=== PATIENT | female | born 1990 | race African-American/Black ===

== ENCOUNTER 2018-03-12 04:58 | Inpatient (IN) ==
[2018-03-12] MEDS ORDERED: ONDANSETRON 4 MG/2 ML VIAL IV PRN ×2 (05:14→13:15)
[2018-03-12] MEDS ORDERED: ACETAMINOPHEN 325 MG TABLET PO PRN ×2 (05:14→13:15)
[2018-03-12] MEDS ORDERED: MEPERIDINE 50 MG/1 ML VIAL IV PRN (05:14)
[2018-03-12] MEDS ORDERED: BUTORPHANOL 2 MG/ML VIAL IV PRN (05:14)
[2018-03-12] MEDS ORDERED: CITRIC ACID/SODIUM CITRATE 30 ML UDCUP PO ONE (05:16)
[2018-03-12] MEDS ORDERED: FAMOTIDINE 20 MG/2 ML VIAL IV ONE (05:16)
[2018-03-12] MEDS ORDERED: fentaNYL 2 MCG/ROPIV 0.2% EPID 100 ML EPIDURAL SCH (05:30)
[2018-03-12 05:34] LABS: Basophils # 0.1 10*3/uL (0.0-0.2); Basophils % 0.4 % (0.0-0.8); Eosinophils % 0.3 % (0.00-10.9); Hemoglobin 12.5 GM/DL (12.0-16.0); Immature Granulocytes % 1.7 %; Lymphocytes # 1.9 10*3/uL (1.4-4.0); Lymphocytes % 16.5 % (21.3-54.2); Mean Corpuscular HGB Conc 32.1 GM/DL (32-36); Mean Corpuscular Hemoglobin 31 PG (27-34); Mean Corpuscular Volume 96.5 FL (87-102); Mean Platelet Volume 10.8 FL (9.6-12.0); Monocytes # 1.1 10*3/uL (0.11-0.8); Monocytes % 9.7 % (1.7-12.7); Neutrophils # 8.4 10*3/uL (1.4-7.4); Neutrophils % 71.4 % (38.7-73.9); Platelet Count 174 T/CUMM (130-400); Red Blood Count 4.04 MC/CUMM (3.8-5.5); Red Cell Distribution Width 14.8 % (9.3-17.3); White Blood Count 11.7 T/CUMM (4-12)
[2018-03-12 05:40] LABS: Apearance,Urine CLEAR (Clear); Bilirubin,Urine Negative (Negative); Blood, Urine Small mg/dL (Negative); Glucose,Urine (UA) Negative (Negative); Ketones,Urine Negative (Negative); Mucus,Urine Occasional /LPF (Occasional); Nitrite,Urine Negative (Negative); Protein,Urine Negative; RBC,Urine 4 /HPF (0-4); Squamous Epithelial Cell,Urine Occasional /HPF (0-10); Urine Color Yellow (Yellow); Urine Specific Gravity 1.017 (1.001-1.035); Urine Urobilinogen < 2.0 EU/DL (0.2-1.0); WBC,Urine 5 /HPF (0-6)
[2018-03-12] MEDS: LACTATED RINGERS 1,000 ML IV SCH ×3 (05:40→07:43)
[2018-03-12 06:04] LABS: Albumin 2.5 G/DL (3.4-5.0); Bilirubin,Total 0.5 MG/DL (0.2-1.0); Calcium 8.6 MG/DL (8.5-10.1); Osmolality,Calculated 275.5 MOS/KG (273-304); Potassium 3.6 MMOL/L (3.5-5.1); Total Protein 6.8 G/DL (6.4-8.3)
[2018-03-12] MEDS ORDERED: OXYTOCIN/LR 20 UNIT/1,000 ML BAG IV SCH (08:00)
[2018-03-12] MEDS ORDERED: HYDROCORTISONE 2.5% RECTAL CREAM 30 GM TUBE TOP PRN (13:15)
[2018-03-12] MEDS ORDERED: LANOLIN 50% CREAM 0.3 OZ TUBE TOP PRN (13:15)
[2018-03-12] MEDS ORDERED: BENZOCAINE 20%/MENTHOL 0.5% SPRAY 56 GM CAN TOP PRN (13:15)
[2018-03-12] MEDS ORDERED: RHO(D) IMMUNE GLOBULIN 300 MCG SYRINGE IM ONE (13:15)
[2018-03-12] MEDS ORDERED: oxyCODONE/ACETAMINOPHEN 5-325 MG TABLET PO PRN (13:15)
[2018-03-12] MEDS ORDERED: MEASLES/MUMPS/RUBELLA VACCINE 0.5 ML VIAL SUBCUT ONE (13:15)
[2018-03-12] MEDS ORDERED: OXYTOCIN/LR 20 UNIT/1,000 ML BAG IV ONE (13:15)
[2018-03-12] MEDS ORDERED: WITCH HAZEL PADS 100/JAR TOP PRN (13:15)
[2018-03-12] MEDS ORDERED: BISACODYL 10 MG SUPP RECTAL PRN (13:15)
[2018-03-12] MEDS ORDERED: DIPH/TET/ACEL PERT BOOSTER VACCINE 0.5 ML VIAL IM ONE (13:15)
[2018-03-12] MEDS: oxyCODONE/ACETAMINOPHEN 5-325 MG TABLET PO PRN (16:17)
[2018-03-12] MEDS: IBUPROFEN 800 MG TABLET PO PRN (22:29)
[2018-03-12] MEDS: FERROUS SULFATE 325 MG TABLET PO SCH (22:30)
[2018-03-12] MEDS: DOCUSATE SODIUM 100 MG CAPSULE PO SCH (22:30)
[2018-03-13] MEDS: IBUPROFEN 800 MG TABLET PO PRN ×2 (05:55→17:58)
[2018-03-13 06:01] LABS: Basophils % 0.2 % (0.0-0.8); Eosinophils # 0.1 10*3/uL (0.0-0.87); Eosinophils % 0.3 % (0.00-10.9); Hematocrit 34.4 VOL% (35.7-47.0); Hemoglobin 11.1 GM/DL (12.0-16.0); Immature Granulocytes % 1.9 %; Immature Granulocytes Absolute 0.33 #; Lymphocytes # 2.4 10*3/uL (1.4-4.0); Lymphocytes % 13.4 % (21.3-54.2); Mean Corpuscular HGB Conc 32.3 GM/DL (32-36); Mean Corpuscular Hemoglobin 31 PG (27-34); Mean Corpuscular Volume 96.9 FL (87-102); Mean Platelet Volume 11.1 FL (9.6-12.0); Monocytes % 11.3 % (1.7-12.7); Neutrophils # 12.9 10*3/uL (1.4-7.4); Neutrophils % 72.9 % (38.7-73.9); Platelet Count 149 T/CUMM (130-400); Red Blood Count 3.55 MC/CUMM (3.8-5.5); Red Cell Distribution Width 14.6 % (9.3-17.3); White Blood Count 17.7 T/CUMM (4-12)
[2018-03-13] MEDS: FERROUS SULFATE 325 MG TABLET PO SCH ×3 (09:14→21:32)
[2018-03-13] MEDS: DOCUSATE SODIUM 100 MG CAPSULE PO SCH ×2 (09:14→21:33)
[2018-03-13] MEDS: MULTIVITAMIN (PRENATAL) TABLET PO SCH (09:14)
[2018-03-14] MEDS: MULTIVITAMIN (PRENATAL) TABLET PO SCH (09:20)
[2018-03-14] MEDS: DOCUSATE SODIUM 100 MG CAPSULE PO SCH ×2 (09:20→22:01)
[2018-03-14] MEDS: IBUPROFEN 800 MG TABLET PO PRN ×2 (09:20→16:58)
[2018-03-14] MEDS: FERROUS SULFATE 325 MG TABLET PO SCH ×3 (09:28→22:01)
[2018-03-14] MEDS: FLUTICASONE 50 MCG NASAL SPRAY 16 GM BOTTLE BOTH NARES SCH (18:20)
[2018-03-14 19:35] VITALS: BP 103/56
[2018-03-15] MEDS: oxyCODONE/ACETAMINOPHEN 5-325 MG TABLET PO PRN ×2 (00:34→06:08)
[2018-03-15] MEDS: IBUPROFEN 800 MG TABLET PO PRN (06:08)
[2018-03-15] MEDS: MULTIVITAMIN (PRENATAL) TABLET PO SCH (08:56)
[2018-03-15] MEDS: FERROUS SULFATE 325 MG TABLET PO SCH (09:04)
[2018-03-15] MEDS: DOCUSATE SODIUM 100 MG CAPSULE PO SCH (09:04)
[2018-03-15] MEDS: FLUTICASONE 50 MCG NASAL SPRAY 16 GM BOTTLE BOTH NARES SCH (09:04)
== END 2018-03-15 12:51 | disposition home or self-care (01) | DRG 807 ==
LOC: N.LDOUT 04:58 → N.LD 05:00
PROVIDERS: ADMIT Obstetrics & Gynecology; ATTEND Obstetrics & Gynecology